=== PATIENT | male | born 1975 | race Caucasian/White ===

== ENCOUNTER 2023-11-07 18:28 | Emergency (ER) | payer BC ==
[~2023-11-07] VITALS: Ht 172.7 cm; Wt 70.0 kg
[2023-11-07 18:34] VITALS: O2SAT 99
[2023-11-07 19:30] VITALS: BP 157/93; PULSE 103; RESP 18
[2023-11-07 21:57] LABS: BASOPHILS % 0.5 % (0.0-2.0); DIFFERENTIAL COMMENT 0; EOSINOPHILS % 0.1 % (0.0-5.0); HEMATOCRIT. 42.4 % (42.0-52.0); HEMOGLOBIN. 14.9 g/dL (14.0-18.0); LYMPHOCYTES % 12.2 % (20.0-50.0); MEAN CORPUSCULAR HEMOGLOBIN 36.4 pg (28.0-32.0); MEAN CORPUSCULAR HGB CONC 35.1 g/dL (31.0-37.0); MEAN CORPUSCULAR VOLUME 103.9 fL (80.0-94.0); MEAN PLATELET VOLUME 6.9 fl (7.4-10.4); MONOCYTES % 8.4 % (2.0-8.0); NEUTROPHILS % 78.8 % (40.0-76.0); PLATELET 214 x1000/uL (130-400); RED BLOOD CELL COUNT 4.08 mill/uL (4.7-6.1); RED CELL DISTRIBUTION WIDTH 13.4 % (11.6-14.6); WHITE BLOOD COUNT 12.1 x1000/uL (4.5-11.0)
[2023-11-07 22:14] LABS: ALANINE AMINOTRANSFERASE 23 IU/L (10-49); ALBUMIN 4.3 g/dL (3.2-4.8); ASPARTATE AMINOTRANSFERASE 33 IU/L (<34); BILIRUBIN TOTAL 1.3 mg/dL (0.1-1.0); CALCIUM 8.4 mg/dL (8.7-10.4); CARBON DIOXIDE 26 mEq/L (21-32); CHLORIDE 93 mEq/L (98-107); CREATINE KINASE 169 IU/L (46-171); CREATININE 0.6 mg/dL (0.6-1.3); GLUCOSE 98 mg/dL (70-105); POTASSIUM 2.9 mEq/L (3.5-5.1); PROTEIN TOTAL 6.5 g/dL (6.0-8.3); SODIUM 128 mEq/L (136-145); UREA NITROGEN BLOOD 7 mg/dL (9-23)
[2023-11-07 22:15] LABS: ETHANOL BLOOD < 10 mg/dL (<10)
== END 2023-11-07 21:39 | disposition home or self-care (01) ==
LOC: ER 18:28
DX: R56.9 Unspecified convulsions (principal); Z53.21 Procedure and treatment not carried out due to patient leaving prior to being seen by health care provider
CPT/HCPCS: 36415; 71045; 80053; 80320; 82550; 83605; 85025; 93005; 99281; 99285; G0480